=== PATIENT | female | born 1990 | race Caucasian/White ===

== ENCOUNTER 2018-01-27 21:14 | Emergency (ER) | payer MEDICAID, OTHER ==
[2018-01-28] MEDS: SOD CHLORIDE 0.9% 1,000 ML IV (01:10)
[2018-01-28] MEDS: METOCLOPRAMIDE 10 MG INJ IV (01:10)
[2018-01-28] MEDS: DIPHENHYDRAMINE 50 MG INJ IV (01:11)
[2018-01-28 01:14] LABS: ADD UMIC YES; UR ASCORBIC ACID 40 mg/dL (NEGATIVE); UR BILIRUBIN (Dip) NEGATIVE (NEGATIVE); UR BLOOD (Dip) NEGATIVE (NEGATIVE); UR CLARITY SLIGHTLY CLOUDY (CLEAR); UR COLOR AMBER (YELLOW); UR GLUCOSE (Dip) 1+ mg/dL (NEGATIVE); UR KETONES (Dip) 2+ mg/dL (NEGATIVE); UR LEUKOCYTE ESTERASE (Dip) TRACE Leu/ul (NEGATIVE); UR MUCUS MODERATE /HPF (NONE SEEN); UR NITRITE (Dip) NEGATIVE (NEGATIVE); UR RBC 5 /HPF (0-5); UR SQUAMOUS EPITHELIAL CELL FEW /HPF (FEW); UR TOTAL PROTEIN (Dip) 1+ mg/dl (NEGATIVE); UR UROBILINOGEN (Dip) NEGATIVE (NEGATIVE); UR WBC 5 /HPF (0-5)
[2018-01-28 01:33] LABS: ADD MAN DIFF? NO
[2018-01-28 01:34] LABS: WHITE BLOOD COUNT 9.2 10^3/ul (4.8-10.8)
[2018-01-28 01:34] LABS: BASOPHIL # 0.1 10^3/ul (0.0-0.1); EOSINOPHILS # 0.1 10^3/ul (0.0-0.5); EOSINOPHILS % 0.9 % (0.0-7.0); HEMATOCRIT 43.4 % (37.0-47.0); HEMOGLOBIN 15.3 g/dl (12.0-16.0); LYMPHOCYTES # 2.3 10^3/ul (0.8-2.9); LYMPHOCYTES % 24.7 % (15.0-51.0); MEAN CORPUSCULAR HEMOGLOBIN 28.7 pg (29.0-33.0); MEAN CORPUSCULAR HGB CONC 35.3 g/dl (32.0-37.0); MEAN CORPUSCULAR VOLUME 81.4 fl (82.0-101.0); MEAN PLATELET VOLUME 9.5 fl (7.4-10.4); MONOCYTE # 0.8 10^3/ul (0.3-0.9); MONOCYTES % 8.3 % (0.0-11.0); NEUTROPHILS % 64.9 % (39.0-77.0); PLATELET COUNT 309 10^3/UL (140-415); RED BLOOD COUNT 5.33 10^6/ul (4.20-5.40); RED CELL DISTRIBUTION WIDTH 13.2 % (11.5-14.5)
[2018-01-28 01:53] LABS: LIPASE 205 U/L (23-300)
[2018-01-28 01:55] LABS: ALANINE AMINOTRANSFERASE 39 IU/L (13-69); ALBUMIN 4.8 g/dl (3.3-4.9); ALBUMIN/GLOBULIN RATIO 1.29; ALKALINE PHOSPHATASE 55 IU/L (42-121); ANION GAP 19 (8-16); ASPARTATE AMINO TRANSFERASE 29 IU/L (15-46); BILIRUBIN,INDIRECT 0.3 mg/dl (0-1.1); BILIRUBIN,TOTAL 0.3 mg/dl (0.2-1.3); BLOOD UREA NITROGEN 8 mg/dl (7-20); CALCIUM 9.6 mg/dl (8.4-10.2); CARBON DIOXIDE 21 mmol/L (21-31); CHLORIDE 104 mmol/L (97-110); CREATININE 0.49 mg/dl (0.44-1.00); GLUCOSE 83 mg/dl (70-220); POTASSIUM 4.1 mmol/L (3.5-5.1); SODIUM 140 mmol/L (135-144); TOTAL PROTEIN 8.5 g/dl (6.1-8.1)
== END 2018-01-28 05:10 | disposition home or self-care (01) ==
LOC: FTE 21:14
DX: O26.891 Other specified pregnancy related conditions, first trimester (principal); R10.13 Epigastric pain; Z3A.08 8 weeks gestation of pregnancy
CPT/HCPCS: 36415; 76705; 76801; 80053; 81001; 83690; 84702; 85025; 86900; 86901; 96374; 96375; 99285-25

== ENCOUNTER 2018-01-31 17:44 | Emergency (ER) | payer MEDICAID ==
[2018-01-31] MEDS: LIDOCAINE/MYLANTA 40 ML BTL PO (19:27)
[2018-01-31] MEDS: FAMOTIDINE 20 MG INJ IV (19:27)
[2018-01-31] MEDS: METOCLOPRAMIDE 10 MG INJ IV (19:27)
[2018-01-31] MEDS: SOD CHLORIDE 0.9% 1,000 ML IV (19:27)
[2018-01-31 19:36] LABS: URINE BLOOD (Dip) POC 2+ (NEGATIVE); URINE GLUCOSE (Dip) POC Negative (NEGATIVE); URINE KETONES (Dip) POC 4+ (NEGATIVE); URINE LEUKOCYTE EST (Dip) POC Negative (NEGATIVE); URINE NITRITE (Dip) POC Negative (NEGATIVE); URINE TOTAL PROTEIN POC 2+ (NEGATIVE)
[2018-01-31 19:36] LABS: URINE PH (Dip) POC 5.5 (5.0-8.5)
[2018-01-31 19:46] LABS: ADD MAN DIFF? NO
[2018-01-31 19:47] LABS: BASOPHIL # 0.1 10^3/ul (0.0-0.1); BASOPHILS % 1.1 % (0.0-2.0); EOSINOPHILS # 0.1 10^3/ul (0.0-0.5); EOSINOPHILS % 0.6 % (0.0-7.0); HEMATOCRIT 47.3 % (37.0-47.0); LYMPHOCYTES # 1.6 10^3/ul (0.8-2.9); LYMPHOCYTES % 19.9 % (15.0-51.0); MEAN CORPUSCULAR HEMOGLOBIN 29.4 pg (29.0-33.0); MEAN CORPUSCULAR HGB CONC 35.9 g/dl (32.0-37.0); MEAN CORPUSCULAR VOLUME 81.7 fl (82.0-101.0); MEAN PLATELET VOLUME 9.3 fl (7.4-10.4); MONOCYTE # 0.6 10^3/ul (0.3-0.9); MONOCYTES % 6.8 % (0.0-11.0); NEUTROPHIL # 5.7 10^3/ul (1.6-7.5); NEUTROPHILS % 71.2 % (39.0-77.0); PLATELET COUNT 337 10^3/UL (140-415); RED BLOOD COUNT 5.79 10^6/ul (4.20-5.40); RED CELL DISTRIBUTION WIDTH 13.3 % (11.5-14.5)
[2018-01-31 20:07] LABS: ALANINE AMINOTRANSFERASE 46 IU/L (13-69); ALBUMIN 4.9 g/dl (3.3-4.9); ALBUMIN/GLOBULIN RATIO 1.11; ALKALINE PHOSPHATASE 58 IU/L (42-121); ANION GAP 25 (8-16); ASPARTATE AMINO TRANSFERASE 36 IU/L (15-46); BILIRUBIN,INDIRECT 0.5 mg/dl (0-1.1); BILIRUBIN,TOTAL 0.5 mg/dl (0.2-1.3); BLOOD UREA NITROGEN 6 mg/dl (7-20); CARBON DIOXIDE 22 mmol/L (21-31); CHLORIDE 100 mmol/L (97-110); CREATININE 0.54 mg/dl (0.44-1.00); GLUCOSE 78 mg/dl (70-220); LIPASE 322 U/L (23-300); POTASSIUM 4.2 mmol/L (3.5-5.1); SODIUM 143 mmol/L (135-144); TOTAL PROTEIN 9.3 g/dl (6.1-8.1)
== END 2018-01-31 21:45 | disposition home or self-care (01) ==
LOC: FTE 17:44
DX: O30.001 Twin pregnancy, unspecified number of placenta and unspecified number of amniotic sacs, first trimester (principal); O21.0 Mild hyperemesis gravidarum; R10.13 Epigastric pain; Z3A.09 9 weeks gestation of pregnancy
CPT/HCPCS: 36415; 80053; 81003; 81025; 83690; 85025; 96374; 96375; 99284-25

== ENCOUNTER 2018-02-09 17:06 | Emergency (ER) | payer MEDICAID ==
[2018-02-09] MEDS: METOCLOPRAMIDE 10 MG INJ IV (20:04)
[2018-02-09] MEDS: SOD CHLORIDE 0.9% 1,000 ML IV (20:04)
[2018-02-09] MEDS: ACETAMINOPHEN 500 MG TAB PO (20:04)
[2018-02-09 20:27] LABS: ADD MAN DIFF? NO
[2018-02-09 20:34] LABS: BASOPHIL # 0.1 10^3/ul (0.0-0.1); EOSINOPHILS # 0.1 10^3/ul (0.0-0.5); EOSINOPHILS % 1.7 % (0.0-7.0); HEMATOCRIT 44.6 % (37.0-47.0); HEMOGLOBIN 15.8 g/dl (12.0-16.0); LYMPHOCYTES # 1.8 10^3/ul (0.8-2.9); MEAN CORPUSCULAR HEMOGLOBIN 29.1 pg (29.0-33.0); MEAN CORPUSCULAR HGB CONC 35.4 g/dl (32.0-37.0); MEAN CORPUSCULAR VOLUME 82.1 fl (82.0-101.0); MEAN PLATELET VOLUME 9.6 fl (7.4-10.4); MONOCYTE # 0.7 10^3/ul (0.3-0.9); MONOCYTES % 8.7 % (0.0-11.0); NEUTROPHIL # 4.9 10^3/ul (1.6-7.5); NEUTROPHILS % 64.2 % (39.0-77.0); PLATELET COUNT 349 10^3/UL (140-415); RED BLOOD COUNT 5.43 10^6/ul (4.20-5.40); RED CELL DISTRIBUTION WIDTH 13.8 % (11.5-14.5)
[2018-02-09 20:34] LABS: WHITE BLOOD COUNT 7.7 10^3/ul (4.8-10.8)
[2018-02-09 20:43] LABS: ADD UMIC YES; UR ASCORBIC ACID 40 mg/dL (NEGATIVE); UR BACTERIA FEW /HPF (NONE SEEN); UR BILIRUBIN (Dip) NEGATIVE (NEGATIVE); UR BLOOD (Dip) NEGATIVE (NEGATIVE); UR CLARITY SLIGHTLY CLOUDY (CLEAR); UR COLOR YELLOW (YELLOW); UR GLUCOSE (Dip) NEGATIVE (NEGATIVE); UR KETONES (Dip) 2+ mg/dL (NEGATIVE); UR LEUKOCYTE ESTERASE (Dip) 2+ Leu/ul (NEGATIVE); UR MUCUS MODERATE /HPF (NONE SEEN); UR NITRITE (Dip) NEGATIVE (NEGATIVE); UR RBC 3 /HPF (0-5); UR SPECIFIC GRAVITY (Dip) 1.018 (1.003-1.030); UR SQUAMOUS EPITHELIAL CELL MODERATE /HPF (FEW); UR TOTAL PROTEIN (Dip) NEGATIVE (NEGATIVE); UR UROBILINOGEN (Dip) NEGATIVE (NEGATIVE); UR WBC 11 /HPF (0-5)
[2018-02-09 20:54] LABS: ALANINE AMINOTRANSFERASE 40 IU/L (13-69); ALBUMIN 4.6 g/dl (3.3-4.9); ALBUMIN/GLOBULIN RATIO 1.04; ALKALINE PHOSPHATASE 63 IU/L (42-121); ANION GAP 21 (8-16); ASPARTATE AMINO TRANSFERASE 33 IU/L (15-46); BILIRUBIN,INDIRECT 0.4 mg/dl (0-1.1); BILIRUBIN,TOTAL 0.4 mg/dl (0.2-1.3); BLOOD UREA NITROGEN 5 mg/dl (7-20); CALCIUM 9.9 mg/dl (8.4-10.2); CARBON DIOXIDE 22 mmol/L (21-31); CHLORIDE 102 mmol/L (97-110); CREATININE 0.54 mg/dl (0.44-1.00); GLUCOSE 86 mg/dl (70-220); POTASSIUM 4.2 mmol/L (3.5-5.1); SODIUM 141 mmol/L (135-144)
[2018-02-09 21:25] LABS: LIPASE 194 U/L (23-300)
== END 2018-02-09 22:15 | disposition home or self-care (01) ==
LOC: FTE 17:06
DX: O30.009 Twin pregnancy, unspecified number of placenta and unspecified number of amniotic sacs, unspecified trimester (principal); O23.41 Unspecified infection of urinary tract in pregnancy, first trimester; R10.2 Pelvic and perineal pain
CPT/HCPCS: 36415; 76801; 80053; 81001; 83690; 84702; 85025; 86900; 86901; 87086; 96374; 99285-25

== ENCOUNTER 2018-02-17 09:38 | Emergency (ER) | payer MEDICAID ==
[2018-02-17] MEDS: SOD CHLORIDE 0.9% 1,000 ML IV (10:11)
[2018-02-17] MEDS: METOCLOPRAMIDE 10 MG INJ IV (10:15)
[2018-02-17] MEDS: FAMOTIDINE 20 MG INJ IV (10:15)
[2018-02-17 10:31] LABS: ADD MAN DIFF? NO
[2018-02-17 10:32] LABS: BASOPHIL # 0.1 10^3/ul (0.0-0.1); BASOPHILS % 0.8 % (0.0-2.0); EOSINOPHILS # 0.1 10^3/ul (0.0-0.5); EOSINOPHILS % 1.2 % (0.0-7.0); HEMATOCRIT 44.4 % (37.0-47.0); HEMOGLOBIN 15.8 g/dl (12.0-16.0); LYMPHOCYTES # 1.7 10^3/ul (0.8-2.9); LYMPHOCYTES % 20.6 % (15.0-51.0); MEAN CORPUSCULAR HEMOGLOBIN 29.4 pg (29.0-33.0); MEAN CORPUSCULAR HGB CONC 35.6 g/dl (32.0-37.0); MEAN CORPUSCULAR VOLUME 82.5 fl (82.0-101.0); MEAN PLATELET VOLUME 9.5 fl (7.4-10.4); MONOCYTE # 0.5 10^3/ul (0.3-0.9); MONOCYTES % 6.4 % (0.0-11.0); NEUTROPHIL # 5.9 10^3/ul (1.6-7.5); NEUTROPHILS % 70.8 % (39.0-77.0); PLATELET COUNT 358 10^3/UL (140-415); RED BLOOD COUNT 5.38 10^6/ul (4.20-5.40)
[2018-02-17 10:32] LABS: WHITE BLOOD COUNT 8.3 10^3/ul (4.8-10.8)
[2018-02-17 10:40] LABS: ADD UMIC YES; UR AMORPHOUS CRYSTAL FEW /HPF (NONE SEEN); UR ASCORBIC ACID NEGATIVE (NEGATIVE); UR BACTERIA FEW /HPF (NONE SEEN); UR BILIRUBIN (Dip) NEGATIVE (NEGATIVE); UR BLOOD (Dip) NEGATIVE (NEGATIVE); UR CLARITY CLOUDY (CLEAR); UR COLOR YELLOW (YELLOW); UR GLUCOSE (Dip) NEGATIVE (NEGATIVE); UR KETONES (Dip) TRACE mg/dL (NEGATIVE); UR LEUKOCYTE ESTERASE (Dip) 1+ Leu/ul (NEGATIVE); UR MUCUS FEW /HPF (NONE SEEN); UR NITRITE (Dip) NEGATIVE (NEGATIVE); UR RBC 2 /HPF (0-5); UR SPECIFIC GRAVITY (Dip) 1.017 (1.003-1.030); UR SQUAMOUS EPITHELIAL CELL MODERATE /HPF (FEW); UR TOTAL PROTEIN (Dip) NEGATIVE (NEGATIVE); UR UROBILINOGEN (Dip) NEGATIVE (NEGATIVE); UR WBC 7 /HPF (0-5)
[2018-02-17 10:50] LABS: ALANINE AMINOTRANSFERASE 50 IU/L (13-69); ALBUMIN 4.7 g/dl (3.3-4.9); ALBUMIN/GLOBULIN RATIO 1.11; ALKALINE PHOSPHATASE 61 IU/L (42-121); ANION GAP 22 (8-16); ASPARTATE AMINO TRANSFERASE 29 IU/L (15-46); BILIRUBIN,INDIRECT 0.5 mg/dl (0-1.1); BILIRUBIN,TOTAL 0.5 mg/dl (0.2-1.3); BLOOD UREA NITROGEN 4 mg/dl (7-20); CALCIUM 9.9 mg/dl (8.4-10.2); CARBON DIOXIDE 19 mmol/L (21-31); CHLORIDE 108 mmol/L (97-110); CREATININE 0.55 mg/dl (0.44-1.00); GLUCOSE 96 mg/dl (70-220); LIPASE 238 U/L (23-300); POTASSIUM 4.4 mmol/L (3.5-5.1); SODIUM 145 mmol/L (135-144); TOTAL PROTEIN 8.9 g/dl (6.1-8.1)
[2018-02-17] MEDS: CEFTRIAXONE 1 GM/50 ML (PMX) 50 ML IVPB (12:43)
== END 2018-02-17 13:01 | disposition home or self-care (01) ==
LOC: FTE 09:38
DX: O23.41 Unspecified infection of urinary tract in pregnancy, first trimester (principal); O30.001 Twin pregnancy, unspecified number of placenta and unspecified number of amniotic sacs, first trimester; O99.89 Other specified diseases and conditions complicating pregnancy, childbirth and the puerperium; R51 Headache; R10.13 Epigastric pain; R10.2 Pelvic and perineal pain; Z3A.11 11 weeks gestation of pregnancy
CPT/HCPCS: 36415; 76801; 80053; 81001; 83690; 84702; 85025; 87086; 96374; 96375; 99285-25

== ENCOUNTER 2018-03-02 17:05 | Emergency (ER) | payer MEDICAID ==
[2018-03-02] MEDS ORDERED: PANTOPRAZOLE 40 MG INJ IV (20:30)
[2018-03-02] MEDS: ACETAMINOPHEN 325 MG TAB PO (20:37)
[2018-03-02] MEDS: SOD CHLORIDE 0.9% 1,000 ML IV (20:37)
[2018-03-02] MEDS: FAMOTIDINE 20 MG INJ IV (20:37)
[2018-03-02] MEDS: ONDANSETRON 4 MG INJ IV (20:37)
[2018-03-02 20:40] LABS: ADD MAN DIFF? NO
[2018-03-02 20:41] LABS: BASOPHIL # 0.1 10^3/ul (0.0-0.1); BASOPHILS % 0.8 % (0.0-2.0); EOSINOPHILS # 0.1 10^3/ul (0.0-0.5); EOSINOPHILS % 1.1 % (0.0-7.0); HEMATOCRIT 37.3 % (37.0-47.0); LYMPHOCYTES # 1.9 10^3/ul (0.8-2.9); LYMPHOCYTES % 23.8 % (15.0-51.0); MEAN CORPUSCULAR HEMOGLOBIN 29.6 pg (29.0-33.0); MEAN CORPUSCULAR HGB CONC 34.9 g/dl (32.0-37.0); MEAN PLATELET VOLUME 9.4 fl (7.4-10.4); MONOCYTE # 0.7 10^3/ul (0.3-0.9); MONOCYTES % 8.3 % (0.0-11.0); NEUTROPHIL # 5.2 10^3/ul (1.6-7.5); NEUTROPHILS % 65.7 % (39.0-77.0); PLATELET COUNT 271 10^3/UL (140-415); RED BLOOD COUNT 4.39 10^6/ul (4.20-5.40); RED CELL DISTRIBUTION WIDTH 13.9 % (11.5-14.5)
[2018-03-02 20:50] LABS: ADD UMIC YES; UR ASCORBIC ACID 20 mg/dL (NEGATIVE); UR BILIRUBIN (Dip) NEGATIVE (NEGATIVE); UR BLOOD (Dip) NEGATIVE (NEGATIVE); UR CLARITY CLOUDY (CLEAR); UR COLOR YELLOW (YELLOW); UR GLUCOSE (Dip) NEGATIVE (NEGATIVE); UR KETONES (Dip) NEGATIVE (NEGATIVE); UR LEUKOCYTE ESTERASE (Dip) 2+ Leu/ul (NEGATIVE); UR MUCUS MODERATE /HPF (NONE SEEN); UR NITRITE (Dip) NEGATIVE (NEGATIVE); UR RBC 3 /HPF (0-5); UR SPECIFIC GRAVITY (Dip) 1.023 (1.003-1.030); UR SQUAMOUS EPITHELIAL CELL MANY /HPF (FEW); UR TOTAL PROTEIN (Dip) 1+ mg/dl (NEGATIVE); UR UROBILINOGEN (Dip) NEGATIVE (NEGATIVE); UR WBC 14 /HPF (0-5)
[2018-03-02 21:02] LABS: ALANINE AMINOTRANSFERASE 32 IU/L (13-69); ALBUMIN 3.5 g/dl (3.3-4.9); ALKALINE PHOSPHATASE 53 IU/L (42-121); ANION GAP 15 (8-16); ASPARTATE AMINO TRANSFERASE 23 IU/L (15-46); BILIRUBIN,INDIRECT 0.3 mg/dl (0-1.1); BILIRUBIN,TOTAL 0.3 mg/dl (0.2-1.3); BLOOD UREA NITROGEN 6 mg/dl (7-20); CARBON DIOXIDE 19 mmol/L (21-31); CHLORIDE 108 mmol/L (97-110); CREATININE 0.44 mg/dl (0.44-1.00); GLUCOSE 75 mg/dl (70-220); LIPASE 175 U/L (23-300); POTASSIUM 3.2 mmol/L (3.5-5.1); SODIUM 139 mmol/L (135-144)
== END 2018-03-02 22:27 | disposition home or self-care (01) ==
LOC: FTE 17:05
DX: O21.0 Mild hyperemesis gravidarum (principal); O23.41 Unspecified infection of urinary tract in pregnancy, first trimester; Z3A.13 13 weeks gestation of pregnancy
CPT/HCPCS: 80053; 81001; 81025; 83690; 85025; 96374; 96375; 99284-25

== ENCOUNTER 2018-03-30 22:21 | Emergency (ER) | payer MEDICAID ==
[2018-03-30 23:40] LABS: ADD MAN DIFF? NO
[2018-03-30] MEDS: SOD CHLORIDE 0.9% 1,000 ML IV (23:46)
[2018-03-30] MEDS: ACETAMINOPHEN 325 MG TAB PO (23:46)
[2018-03-30 23:50] LABS: WHITE BLOOD COUNT 9.8 10^3/ul (4.8-10.8)
[2018-03-30 23:50] LABS: BASOPHIL # 0.1 10^3/ul (0.0-0.1); BASOPHILS % 0.7 % (0.0-2.0); EOSINOPHILS # 0.2 10^3/ul (0.0-0.5); EOSINOPHILS % 1.7 % (0.0-7.0); HEMATOCRIT 37.8 % (37.0-47.0); HEMOGLOBIN 13.1 g/dl (12.0-16.0); LYMPHOCYTES # 2.3 10^3/ul (0.8-2.9); LYMPHOCYTES % 23.3 % (15.0-51.0); MEAN CORPUSCULAR HEMOGLOBIN 30.9 pg (29.0-33.0); MEAN CORPUSCULAR HGB CONC 34.7 g/dl (32.0-37.0); MEAN CORPUSCULAR VOLUME 89.2 fl (82.0-101.0); MEAN PLATELET VOLUME 9.5 fl (7.4-10.4); MONOCYTE # 0.8 10^3/ul (0.3-0.9); MONOCYTES % 8.5 % (0.0-11.0); NEUTROPHIL # 6.4 10^3/ul (1.6-7.5); NEUTROPHILS % 65.2 % (39.0-77.0); PLATELET COUNT 269 10^3/UL (140-415); RED BLOOD COUNT 4.24 10^6/ul (4.20-5.40); RED CELL DISTRIBUTION WIDTH 14.7 % (11.5-14.5)
[2018-03-30 23:56] LABS: ADD UMIC NO; UR ASCORBIC ACID 20 mg/dL (NEGATIVE); UR BILIRUBIN (Dip) NEGATIVE (NEGATIVE); UR BLOOD (Dip) NEGATIVE (NEGATIVE); UR CLARITY CLEAR (CLEAR); UR COLOR YELLOW (YELLOW); UR GLUCOSE (Dip) NEGATIVE (NEGATIVE); UR KETONES (Dip) NEGATIVE (NEGATIVE); UR LEUKOCYTE ESTERASE (Dip) NEGATIVE Leu/ul (NEGATIVE); UR NITRITE (Dip) NEGATIVE (NEGATIVE); UR SPECIFIC GRAVITY (Dip) 1.009 (1.003-1.030); UR TOTAL PROTEIN (Dip) NEGATIVE (NEGATIVE); UR UROBILINOGEN (Dip) NEGATIVE (NEGATIVE)
[2018-03-30 23:59] LABS: INR 0.92; PROTIME 12.4 Sec (11.9-14.9)
[2018-03-31] LABS: PARTIAL THROMBOPLASTIN TIME 27.1 Sec (25.0-35.0)
[2018-03-31 00:06] LABS: ALANINE AMINOTRANSFERASE 28 IU/L (13-69); ALBUMIN 3.6 g/dl (3.3-4.9); ALBUMIN/GLOBULIN RATIO 1.09; ALKALINE PHOSPHATASE 57 IU/L (42-121); ANION GAP 11 (8-16); ASPARTATE AMINO TRANSFERASE 17 IU/L (15-46); BILIRUBIN,INDIRECT 0.2 mg/dl (0-1.1); BILIRUBIN,TOTAL 0.2 mg/dl (0.2-1.3); BLOOD UREA NITROGEN 4 mg/dl (7-20); CARBON DIOXIDE 26 mmol/L (21-31); CHLORIDE 107 mmol/L (97-110); CREATININE 0.43 mg/dl (0.44-1.00); GLUCOSE 87 mg/dl (70-220); POTASSIUM 3.8 mmol/L (3.5-5.1); SODIUM 140 mmol/L (135-144); TOTAL PROTEIN 6.9 g/dl (6.1-8.1)
== END 2018-03-31 02:12 | disposition home or self-care (01) ==
LOC: FTE 03-31 02:12
DX: O26.892 Other specified pregnancy related conditions, second trimester (principal); R10.2 Pelvic and perineal pain; Z3A.16 16 weeks gestation of pregnancy
CPT/HCPCS: 36415; 76805; 80053; 81003; 84702; 85025; 85610; 85730; 86900; 86901; 96360; 99285-25

== ENCOUNTER 2018-04-21 09:57 | Emergency (ER) | payer MEDICAID ==
[2018-04-21] MEDS: ACETAMINOPHEN 325 MG TAB PO (10:42)
[2018-04-21 11:07] LABS: ADD UMIC YES; UR ASCORBIC ACID NEGATIVE (NEGATIVE); UR BACTERIA FEW /HPF (NONE SEEN); UR BILIRUBIN (Dip) NEGATIVE (NEGATIVE); UR BLOOD (Dip) NEGATIVE (NEGATIVE); UR CLARITY SLIGHTLY CLOUDY (CLEAR); UR COLOR YELLOW (YELLOW); UR GLUCOSE (Dip) NEGATIVE (NEGATIVE); UR KETONES (Dip) NEGATIVE (NEGATIVE); UR LEUKOCYTE ESTERASE (Dip) 1+ Leu/ul (NEGATIVE); UR MUCUS FEW /HPF (NONE SEEN); UR NITRITE (Dip) NEGATIVE (NEGATIVE); UR RBC 1 /HPF (0-5); UR SQUAMOUS EPITHELIAL CELL FEW /HPF (FEW); UR TOTAL PROTEIN (Dip) NEGATIVE (NEGATIVE); UR UROBILINOGEN (Dip) NEGATIVE (NEGATIVE); UR WBC 8 /HPF (0-5)
[2018-04-21] MEDS: CEPHALEXIN 500 MG CAP PO (11:37)
== END 2018-04-21 12:12 | disposition home or self-care (01) ==
LOC: FTE 09:57
DX: O26.892 Other specified pregnancy related conditions, second trimester (principal); R10.2 Pelvic and perineal pain; Z3A.20 20 weeks gestation of pregnancy
CPT/HCPCS: 76805; 81001; 99284-25

== ENCOUNTER 2018-04-21 12:18 | Outpatient (CLI) | payer MEDICAID ==
[2018-04-21] MEDS: LACTATED RINGER'S 1,000 ML IV (14:26)
[2018-04-21] MEDS: TERBUTALINE 1 MG/ML INJ SC (15:04)
== END 2018-04-21 16:35 | disposition home or self-care (01) ==
LOC: OBT 12:18 → L-D 12:18 → OBT 16:35
DX: O26.892 Other specified pregnancy related conditions, second trimester (principal); R10.9 Unspecified abdominal pain; O30.002 Twin pregnancy, unspecified number of placenta and unspecified number of amniotic sacs, second trimester; Z3A.20 20 weeks gestation of pregnancy
CPT/HCPCS: 96360; 96361; 96372

== ENCOUNTER 2018-05-26 08:48 | Outpatient (CLI) | payer MEDICAID ==
[2018-05-26] MEDS: LACTATED RINGER'S 1,000 ML IV (09:07)
== END 2018-05-26 10:40 | disposition home or self-care (01) ==
LOC: OBT 08:48 → L-D 08:48 → OBT 10:40
DX: O26.893 Other specified pregnancy related conditions, third trimester (principal); M79.1 Myalgia; R07.9 Chest pain, unspecified; R06.02 Shortness of breath; Z3A.24 24 weeks gestation of pregnancy
CPT/HCPCS: 96360

== ENCOUNTER 2018-05-26 10:30 | Emergency (ER) | payer MEDICAID ==
[2018-05-26] MEDS: SOD CHLORIDE 0.9% 1,000 ML IV (11:39)
[2018-05-26 11:54] LABS: ADD MAN DIFF? NO
[2018-05-26 11:57] LABS: BASOPHIL # 0.1 10^3/ul (0.0-0.1); BASOPHILS % 0.8 % (0.0-2.0); EOSINOPHILS # 0.1 10^3/ul (0.0-0.5); EOSINOPHILS % 1.4 % (0.0-7.0); HEMOGLOBIN 12.7 g/dl (12.0-16.0); LYMPHOCYTES # 1.7 10^3/ul (0.8-2.9); LYMPHOCYTES % 17.4 % (15.0-51.0); MEAN CORPUSCULAR HEMOGLOBIN 31.1 pg (29.0-33.0); MEAN CORPUSCULAR HGB CONC 34.3 g/dl (32.0-37.0); MEAN CORPUSCULAR VOLUME 90.5 fl (82.0-101.0); MEAN PLATELET VOLUME 9.8 fl (7.4-10.4); MONOCYTE # 0.8 10^3/ul (0.3-0.9); MONOCYTES % 8.5 % (0.0-11.0); NEUTROPHIL # 6.8 10^3/ul (1.6-7.5); NEUTROPHILS % 71.4 % (39.0-77.0); PLATELET COUNT 245 10^3/UL (140-415); RED BLOOD COUNT 4.09 10^6/ul (4.20-5.40)
[2018-05-26 11:57] LABS: WHITE BLOOD COUNT 9.5 10^3/ul (4.8-10.8)
[2018-05-26 11:58] LABS: ADD UMIC YES; UR ASCORBIC ACID NEGATIVE (NEGATIVE); UR BACTERIA FEW /HPF (NONE SEEN); UR BILIRUBIN (Dip) NEGATIVE (NEGATIVE); UR BLOOD (Dip) NEGATIVE (NEGATIVE); UR CLARITY CLEAR (CLEAR); UR COLOR STRAW (YELLOW); UR GLUCOSE (Dip) NEGATIVE (NEGATIVE); UR KETONES (Dip) NEGATIVE (NEGATIVE); UR LEUKOCYTE ESTERASE (Dip) 3+ Leu/ul (NEGATIVE); UR NITRITE (Dip) NEGATIVE (NEGATIVE); UR RBC 1 /HPF (0-5); UR SPECIFIC GRAVITY (Dip) 1.004 (1.003-1.030); UR SQUAMOUS EPITHELIAL CELL FEW /HPF (FEW); UR TOTAL PROTEIN (Dip) NEGATIVE (NEGATIVE); UR UROBILINOGEN (Dip) NEGATIVE (NEGATIVE); UR WBC 9 /HPF (0-5)
[2018-05-26 12:16] LABS: ANION GAP 10 (8-16); BLOOD UREA NITROGEN 6 mg/dl (7-20); CALCIUM 8.8 mg/dl (8.4-10.2); CARBON DIOXIDE 23 mmol/L (21-31); CHLORIDE 107 mmol/L (97-110); CREATININE 0.48 mg/dl (0.44-1.00); GLUCOSE 78 mg/dl (70-220); POTASSIUM 4.4 mmol/L (3.5-5.1); SODIUM 136 mmol/L (135-144)
[2018-05-26] MEDS: CEFTRIAXONE 1 GM/50 ML (PMX) 50 ML IVPB (12:42)
== END 2018-05-26 13:05 | disposition home or self-care (01) ==
LOC: FTE 10:30
DX: O23.42 Unspecified infection of urinary tract in pregnancy, second trimester (principal); R00.2 Palpitations; Z3A.23 23 weeks gestation of pregnancy
CPT/HCPCS: 36415; 80048; 81001; 85025; 93005; 96361; 96365; 99284-25

== ENCOUNTER 2018-06-25 04:22 | Inpatient (IN) | payer MEDICAID ==
[2018-06-25 05:36] LABS: ADD UMIC YES; UR ASCORBIC ACID NEGATIVE (NEGATIVE); UR BACTERIA FEW /HPF (NONE SEEN); UR BILIRUBIN (Dip) NEGATIVE (NEGATIVE); UR BLOOD (Dip) NEGATIVE (NEGATIVE); UR CLARITY CLEAR (CLEAR); UR COLOR STRAW (YELLOW); UR GLUCOSE (Dip) NEGATIVE (NEGATIVE); UR KETONES (Dip) NEGATIVE (NEGATIVE); UR LEUKOCYTE ESTERASE (Dip) TRACE Leu/ul (NEGATIVE); UR NITRITE (Dip) NEGATIVE (NEGATIVE); UR RBC 0 /HPF (0-5); UR SPECIFIC GRAVITY (Dip) 1.006 (1.003-1.030); UR SQUAMOUS EPITHELIAL CELL FEW /HPF (FEW); UR TOTAL PROTEIN (Dip) NEGATIVE (NEGATIVE); UR UROBILINOGEN (Dip) NEGATIVE (NEGATIVE); UR WBC 1 /HPF (0-5)
[2018-06-25] MEDS: LACTATED RINGER'S 1,000 ML IV ×4 (05:43→23:50)
[2018-06-25] MEDS ORDERED: NIFEdipine 10 MG CAP PO (07:30)
[2018-06-25] MEDS: LACTATED RINGER'S 1,000 ML IV* (07:33)
[2018-06-25] MEDS: MAGNESIUM SULFATE 4 GM/100 ML 100 ML IV (08:16)
[2018-06-25] MEDS: BETAMET NA PHOS/AC(6 MG/ML) 5ML INJ IM (08:20)
[2018-06-25] MEDS: MAGNESIUM SULFATE 20 GM/500 ML 500 ML IV ×2 (08:58→18:46)
[2018-06-25 10:01] LABS: ADD MAN DIFF? NO
[2018-06-25 10:04] LABS: WHITE BLOOD COUNT 8.8 10^3/ul (4.8-10.8)
[2018-06-25 10:04] LABS: BASOPHIL # 0.1 10^3/ul (0.0-0.1); BASOPHILS % 0.6 % (0.0-2.0); EOSINOPHILS # 0.1 10^3/ul (0.0-0.5); EOSINOPHILS % 0.9 % (0.0-7.0); HEMATOCRIT 34.1 % (37.0-47.0); HEMOGLOBIN 11.6 g/dl (12.0-16.0); LYMPHOCYTES # 1.3 10^3/ul (0.8-2.9); LYMPHOCYTES % 14.2 % (15.0-51.0); MEAN CORPUSCULAR VOLUME 88.1 fl (82.0-101.0); MEAN PLATELET VOLUME 9.9 fl (7.4-10.4); MONOCYTE # 0.5 10^3/ul (0.3-0.9); MONOCYTES % 6.1 % (0.0-11.0); NEUTROPHIL # 6.9 10^3/ul (1.6-7.5); NEUTROPHILS % 77.6 % (39.0-77.0); PLATELET COUNT 220 10^3/UL (140-415); RED BLOOD COUNT 3.87 10^6/ul (4.20-5.40); RED CELL DISTRIBUTION WIDTH 13.4 % (11.5-14.5)
[2018-06-25] MEDS: PRENATAL VITAMIN PO (14:00)
[2018-06-25] MEDS: FERROUS SULFATE (EC) 325 MG TAB PO (14:00)
[2018-06-25] MEDS: ACETAMINOPHEN 325 MG TAB PO ×3 (14:01→22:03)
[2018-06-25 18:09] LABS: MAGNESIUM 4.9 mg/dl (1.7-2.5)
[2018-06-26 01:38] LABS: MAGNESIUM 5.2 mg/dl (1.7-2.5)
[2018-06-26] MEDS: MAGNESIUM SULFATE 20 GM/500 ML 500 ML IV (04:26)
[2018-06-26 06:42] LABS: MAGNESIUM 5.4 mg/dl (1.7-2.5)
[2018-06-26] MEDS: LACTATED RINGER'S 1,000 ML IV ×3 (08:08→23:50)
[2018-06-26] MEDS: PRENATAL VITAMIN PO (08:18)
[2018-06-26] MEDS: FERROUS SULFATE (EC) 325 MG TAB PO (08:18)
[2018-06-26] MEDS: BETAMET NA PHOS/AC(6 MG/ML) 5ML INJ IM (08:19)
[2018-06-26 13:22] LABS: MAGNESIUM 5.2 mg/dl (1.7-2.5)
[2018-06-26] MEDS: NIFEdipine 10 MG CAP PO ×2 (15:14→19:31)
[2018-06-26] MEDS: ACETAMINOPHEN 325 MG TAB PO (20:43)
[2018-06-27] MEDS: NIFEdipine 10 MG CAP PO ×4 (01:07→18:19)
[2018-06-27] MEDS: ACETAMINOPHEN 325 MG TAB PO ×2 (01:07→13:53)
[2018-06-27] MEDS: AL HYDROX/MG HYDROX/SIMETH 30 ML CUP PO ×2 (02:12→22:11)
[2018-06-27] MEDS: LACTATED RINGER'S 1,000 ML IV ×3 (02:57→17:54)
[2018-06-27] MEDS: FERROUS SULFATE (EC) 325 MG TAB PO (09:00)
[2018-06-27] MEDS: PRENATAL VITAMIN PO (09:12)
[2018-06-28] MEDS: NIFEdipine 10 MG CAP PO ×5 (01:18→23:47)
[2018-06-28] MEDS: LACTATED RINGER'S 1,000 ML IV ×3 (01:23→17:11)
[2018-06-28] MEDS: ACETAMINOPHEN 325 MG TAB PO ×3 (02:06→18:11)
[2018-06-28] MEDS: FERROUS SULFATE (EC) 325 MG TAB PO (08:34)
[2018-06-28] MEDS: PRENATAL VITAMIN PO (08:34)
[2018-06-28] MEDS: AL HYDROX/MG HYDROX/SIMETH 30 ML CUP PO (19:57)
[2018-06-29] MEDS: LACTATED RINGER'S 1,000 ML IV ×2 (01:51→08:36)
[2018-06-29] MEDS: NIFEdipine 10 MG CAP PO ×3 (06:08→18:43)
[2018-06-29] MEDS: PRENATAL VITAMIN PO (08:37)
[2018-06-29] MEDS: FERROUS SULFATE (EC) 325 MG TAB PO (08:37)
[2018-06-29] MEDS: AL HYDROX/MG HYDROX/SIMETH 30 ML CUP PO (22:58)
[2018-06-30] MEDS: NIFEdipine 10 MG CAP PO ×5 (00:06→23:55)
[2018-06-30] MEDS: FERROUS SULFATE (EC) 325 MG TAB PO (08:36)
[2018-06-30] MEDS: PRENATAL VITAMIN PO (08:36)
[2018-06-30] MEDS: AL HYDROX/MG HYDROX/SIMETH 30 ML CUP PO (21:58)
[2018-07-01] MEDS: NIFEdipine 10 MG CAP PO ×3 (06:11→18:00)
[2018-07-01] MEDS: PRENATAL VITAMIN PO (08:55)
[2018-07-01] MEDS: FERROUS SULFATE (EC) 325 MG TAB PO (08:55)
[2018-07-01] MEDS: ACETAMINOPHEN 325 MG TAB PO (23:20)
[2018-07-02] MEDS: NIFEdipine 10 MG CAP PO ×5 (00:03→23:32)
[2018-07-02] MEDS: ACETAMINOPHEN 325 MG TAB PO (06:51)
[2018-07-02] MEDS: PRENATAL VITAMIN PO (08:55)
[2018-07-02] MEDS: FERROUS SULFATE (EC) 325 MG TAB PO (08:55)
[2018-07-02] MEDS: AL HYDROX/MG HYDROX/SIMETH 30 ML CUP PO ×3 (12:09→23:31)
[2018-07-03] MEDS: AL HYDROX/MG HYDROX/SIMETH 30 ML CUP PO ×3 (06:36→23:59)
[2018-07-03] MEDS: NIFEdipine 10 MG CAP PO ×4 (06:37→23:59)
[2018-07-03] MEDS: FERROUS SULFATE (EC) 325 MG TAB PO (08:51)
[2018-07-03] MEDS: PRENATAL VITAMIN PO (08:51)
[2018-07-04] MEDS: NIFEdipine 10 MG CAP PO ×3 (07:30→18:06)
[2018-07-04] MEDS: AL HYDROX/MG HYDROX/SIMETH 30 ML CUP PO ×2 (07:45→20:28)
[2018-07-04] MEDS: PRENATAL VITAMIN PO (09:05)
[2018-07-04] MEDS: FERROUS SULFATE (EC) 325 MG TAB PO (09:05)
[2018-07-05] MEDS: NIFEdipine 10 MG CAP PO ×4 (00:20→18:02)
[2018-07-05] MEDS: FERROUS SULFATE (EC) 325 MG TAB PO (10:29)
[2018-07-05] MEDS: PRENATAL VITAMIN PO (10:29)
[2018-07-05] MEDS: AL HYDROX/MG HYDROX/SIMETH 30 ML CUP PO (15:55)
[2018-07-05] MEDS: ACETAMINOPHEN 325 MG TAB PO ×2 (17:53→17:55)
[2018-07-06] MEDS: NIFEdipine 10 MG CAP PO ×3 (01:12→12:16)
[2018-07-06] MEDS: PRENATAL VITAMIN PO (09:38)
[2018-07-06] MEDS: FERROUS SULFATE (EC) 325 MG TAB PO (09:38)
[2018-07-06] MEDS: AL HYDROX/MG HYDROX/SIMETH 30 ML CUP PO (09:42)
== END 2018-07-06 14:45 | disposition home or self-care (01) | DRG 775 ==
LOC: OBT 04:22 → L-D 04:23 → OBT 07:49 → L-D 07:40
DX: O26.873 Cervical shortening, third trimester (principal); Z37.9 Outcome of delivery, unspecified; O60.03 Preterm labor without delivery, third trimester; O62.8 Other abnormalities of forces of labor; Z3A.29 29 weeks gestation of pregnancy
CPT/HCPCS: 76815; 76817; 76818; 81001; 83735; 85025; 86900; 86901

== ENCOUNTER 2018-07-19 18:07 | Inpatient (IN) | payer MEDICAID ==
[2018-07-19 19:13] LABS: ADD UMIC NO; UR ASCORBIC ACID NEGATIVE (NEGATIVE); UR BILIRUBIN (Dip) NEGATIVE (NEGATIVE); UR BLOOD (Dip) NEGATIVE (NEGATIVE); UR CLARITY CLEAR (CLEAR); UR COLOR STRAW (YELLOW); UR GLUCOSE (Dip) NEGATIVE (NEGATIVE); UR KETONES (Dip) NEGATIVE (NEGATIVE); UR LEUKOCYTE ESTERASE (Dip) NEGATIVE Leu/ul (NEGATIVE); UR NITRITE (Dip) NEGATIVE (NEGATIVE); UR SPECIFIC GRAVITY (Dip) 1.002 (1.003-1.030); UR TOTAL PROTEIN (Dip) NEGATIVE (NEGATIVE); UR UROBILINOGEN (Dip) NEGATIVE (NEGATIVE)
[2018-07-19] MEDS: NIFEdipine 10 MG CAP PO (20:04)
[2018-07-19] MEDS: AMPICILLIN 2 GM/NS (PMX) 100 ML IV (22:13)
[2018-07-19] MEDS: LACTATED RINGER'S 1,000 ML IV (22:13)
[2018-07-19] MEDS: BETAMET NA PHOS/AC(6 MG/ML) 5ML INJ IM (22:31)
[2018-07-19 23:25] LABS: ADD MAN DIFF? NO
[2018-07-19 23:29] LABS: WHITE BLOOD COUNT 8.2 10^3/ul (4.8-10.8)
[2018-07-19 23:29] LABS: BASOPHIL # 0.1 10^3/ul (0.0-0.1); BASOPHILS % 0.9 % (0.0-2.0); EOSINOPHILS # 0.2 10^3/ul (0.0-0.5); EOSINOPHILS % 2.3 % (0.0-7.0); HEMATOCRIT 37.8 % (37.0-47.0); HEMOGLOBIN 12.8 g/dl (12.0-16.0); LYMPHOCYTES # 1.9 10^3/ul (0.8-2.9); LYMPHOCYTES % 23.7 % (15.0-51.0); MEAN CORPUSCULAR HEMOGLOBIN 29.9 pg (29.0-33.0); MEAN CORPUSCULAR HGB CONC 33.9 g/dl (32.0-37.0); MEAN CORPUSCULAR VOLUME 88.3 fl (82.0-101.0); MEAN PLATELET VOLUME 9.6 fl (7.4-10.4); MONOCYTE # 0.7 10^3/ul (0.3-0.9); NEUTROPHIL # 5.2 10^3/ul (1.6-7.5); NEUTROPHILS % 63.6 % (39.0-77.0); PLATELET COUNT 227 10^3/UL (140-415); RED BLOOD COUNT 4.28 10^6/ul (4.20-5.40); RED CELL DISTRIBUTION WIDTH 13.4 % (11.5-14.5)
[2018-07-19 23:46] LABS: ALANINE AMINOTRANSFERASE 23 IU/L (13-69); ALBUMIN/GLOBULIN RATIO 0.83; ALKALINE PHOSPHATASE 221 IU/L (42-121); ANION GAP 13 (8-16); ASPARTATE AMINO TRANSFERASE 23 IU/L (15-46); BILIRUBIN,INDIRECT 0.3 mg/dl (0-1.1); BILIRUBIN,TOTAL 0.3 mg/dl (0.2-1.3); BLOOD UREA NITROGEN 4 mg/dl (7-20); CALCIUM 8.8 mg/dl (8.4-10.2); CARBON DIOXIDE 22 mmol/L (21-31); CHLORIDE 107 mmol/L (97-110); CREATININE 0.43 mg/dl (0.44-1.00); GLUCOSE 87 mg/dl (70-220); POTASSIUM 3.8 mmol/L (3.5-5.1); SODIUM 138 mmol/L (135-144); TOTAL PROTEIN 6.6 g/dl (6.1-8.1)
[2018-07-19 23:47] LABS: INR 0.93; PROTIME 12.5 Sec (11.9-14.9)
[2018-07-19 23:48] LABS: PARTIAL THROMBOPLASTIN TIME 26.3 Sec (25.0-35.0)
[2018-07-20] MEDS ORDERED: NIFEdipine 10 MG CAP PO
[2018-07-20] MEDS: AMPICILLIN 1 GM/NS (PMX) 50 ML IV ×6 (01:46→21:00)
[2018-07-20] MEDS: NIFEdipine 10 MG CAP PO ×3 (01:52→09:31)
[2018-07-20] MEDS: AL HYDROX/MG HYDROX/SIMETH 30 ML CUP PO ×3 (04:05→23:23)
[2018-07-20] MEDS: LACTATED RINGER'S 1,000 ML IV ×2 (04:05→16:50)
[2018-07-20] MEDS: PRENATAL VITAMIN PO (09:31)
[2018-07-20] MEDS: FERROUS SULFATE (EC) 325 MG TAB PO (09:31)
[2018-07-20] MEDS ORDERED: MAGNESIUM SULFATE 4 GM/100 ML 100 ML (11:23)
[2018-07-20] MEDS: MAGNESIUM SULFATE 4 GM/100 ML 100 ML IV (11:45)
[2018-07-20] MEDS: LACTATED RINGER'S 1,000 ML IV* (11:57)
[2018-07-20] MEDS: MAGNESIUM SULFATE 20 GM/500 ML 500 ML IV ×2 (12:19→21:49)
[2018-07-20] MEDS: ACETAMINOPHEN 325 MG TAB PO (16:48)
[2018-07-20 18:50] LABS: MAGNESIUM 4.4 mg/dl (1.7-2.5)
[2018-07-20 22:49] LABS: RAPID PLASMA REAGIN NONREACTIVE (NR)
[2018-07-20] MEDS: BETAMET NA PHOS/AC(6 MG/ML) 5ML INJ IM (22:55)
[2018-07-21 00:49] LABS: MAGNESIUM 4.9 mg/dl (1.7-2.5)
[2018-07-21] MEDS: AMPICILLIN 1 GM/NS (PMX) 50 ML IV ×8 (01:49→21:53)
[2018-07-21 07:37] LABS: MAGNESIUM 5.1 mg/dl (1.7-2.5)
[2018-07-21] MEDS: PRENATAL VITAMIN PO (09:08)
[2018-07-21] MEDS: FERROUS SULFATE (EC) 325 MG TAB PO (09:08)
[2018-07-21] MEDS: MAGNESIUM SULFATE 20 GM/500 ML 500 ML IV ×2 (09:13→19:45)
[2018-07-21] MEDS: LACTATED RINGER'S 1,000 ML IV (11:31)
[2018-07-21 12:46] LABS: MAGNESIUM 4.9 mg/dl (1.7-2.5)
[2018-07-21] MEDS: AL HYDROX/MG HYDROX/SIMETH 30 ML CUP PO ×2 (14:39→23:10)
[2018-07-21 18:37] LABS: MAGNESIUM 5.2 mg/dl (1.7-2.5)
[2018-07-22] MEDS: AMPICILLIN 1 GM/NS (PMX) 50 ML IV ×6 (01:30→21:31)
[2018-07-22 01:51] LABS: MAGNESIUM 5.3 mg/dl (1.7-2.5)
[2018-07-22] MEDS ORDERED: CALCIUM CARBONATE 500 MG CHEW TAB PO (02:00)
[2018-07-22] MEDS: LACTATED RINGER'S 1,000 ML IV (04:56)
[2018-07-22] MEDS: MAGNESIUM SULFATE 20 GM/500 ML 500 ML IV ×3 (04:57→23:12)
[2018-07-22 08:16] LABS: MAGNESIUM 5.3 mg/dl (1.7-2.5)
[2018-07-22] MEDS: PRENATAL VITAMIN PO (08:59)
[2018-07-22] MEDS: FERROUS SULFATE (EC) 325 MG TAB PO (09:00)
[2018-07-22 12:36] LABS: MAGNESIUM 5.2 mg/dl (1.7-2.5)
[2018-07-22] MEDS: AL HYDROX/MG HYDROX/SIMETH 30 ML CUP PO ×2 (13:51→22:33)
[2018-07-22 18:16] LABS: MAGNESIUM 4.7 mg/dl (1.7-2.5)
[2018-07-23] MEDS: AMPICILLIN 1 GM/NS (PMX) 50 ML IV ×3 (00:55→08:01)
[2018-07-23] MEDS: MAGNESIUM SULFATE 20 GM/500 ML 500 ML IV (02:26)
[2018-07-23] MEDS: LACTATED RINGER'S 1,000 ML IV (03:08)
[2018-07-23] MEDS: PRENATAL VITAMIN PO (09:14)
[2018-07-23] MEDS: FERROUS SULFATE (EC) 325 MG TAB PO (09:14)
[2018-07-23] MEDS: NIFEdipine 10 MG CAP PO ×3 (11:53→23:56)
[2018-07-23] MEDS: AL HYDROX/MG HYDROX/SIMETH 30 ML CUP PO (21:47)
[2018-07-24] MEDS: NIFEdipine 10 MG CAP PO ×3 (06:10→18:34)
[2018-07-24] MEDS: PRENATAL VITAMIN PO (08:31)
[2018-07-24] MEDS: FERROUS SULFATE (EC) 325 MG TAB PO (08:31)
[2018-07-24] MEDS: AL HYDROX/MG HYDROX/SIMETH 30 ML CUP PO (08:45)
[2018-07-24] MEDS: LACTATED RINGER'S 1,000 ML IV (21:56)
[2018-07-24 22:47] LABS: ADD MAN DIFF? NO
[2018-07-24 22:50] LABS: BASOPHIL # 0.1 10^3/ul (0.0-0.1); BASOPHILS % 0.5 % (0.0-2.0); EOSINOPHILS # 0.1 10^3/ul (0.0-0.5); EOSINOPHILS % 0.8 % (0.0-7.0); HEMATOCRIT 40.7 % (37.0-47.0); HEMOGLOBIN 13.8 g/dl (12.0-16.0); LYMPHOCYTES # 1.8 10^3/ul (0.8-2.9); LYMPHOCYTES % 18.2 % (15.0-51.0); MEAN CORPUSCULAR HGB CONC 33.9 g/dl (32.0-37.0); MEAN CORPUSCULAR VOLUME 88.5 fl (82.0-101.0); MEAN PLATELET VOLUME 9.7 fl (7.4-10.4); MONOCYTE # 0.8 10^3/ul (0.3-0.9); NEUTROPHIL # 7.1 10^3/ul (1.6-7.5); NEUTROPHILS % 71.5 % (39.0-77.0); PLATELET COUNT 270 10^3/UL (140-415); RED CELL DISTRIBUTION WIDTH 13.6 % (11.5-14.5)
[2018-07-24 23:09] LABS: PROTIME 12.2 Sec (11.9-14.9)
[2018-07-25] MEDS: NIFEdipine 10 MG CAP PO ×3 (01:09→12:45)
[2018-07-25] MEDS: LACTATED RINGER'S 1,000 ML IV ×4 (04:48→22:26)
[2018-07-25] MEDS: PRENATAL VITAMIN PO (08:57)
[2018-07-25] MEDS: FERROUS SULFATE (EC) 325 MG TAB PO (08:57)
[2018-07-25] MEDS ORDERED: OXYTOCIN 30 UNITS/LR 500 ML IV ×3 (14:30→21:00)
[2018-07-25] MEDS ORDERED: CEFAZOLIN 2 GM/50 ML (PMX) 50 ML IV (14:30)
[2018-07-25] MEDS ORDERED: METHYLERGONOVINE 0.2 MG INJ IM ×2 (14:30→21:00)
[2018-07-25] MEDS ORDERED: CARBOPROST 250 MCG INJ IM ×2 (14:30→21:00)
[2018-07-25] MEDS ORDERED: MISOPROSTOL 200 MCG TAB PR ×2 (14:30→21:00)
[2018-07-25 16:16] LABS: HEPATITIS B SURFACE ANTIGEN NEGATIVE (NEGATIVE)
[2018-07-25] MEDS ORDERED: morphine SULFATE/PF (10 MG/10 ML) INJ (16:32)
[2018-07-25] MEDS ORDERED: BUPIVACAINE 0.75%/DEXT (SPINAL) 2 ML INJ (16:32)
[2018-07-25] MEDS ORDERED: CITRIC ACID/SODIUM CITRATE 15 ML CUP (16:32)
[2018-07-25] MEDS ORDERED: METOCLOPRAMIDE 10 MG INJ (16:33)
[2018-07-25] MEDS ORDERED: FAMOTIDINE 20 MG INJ (16:33)
[2018-07-25] MEDS ORDERED: PHENYLephrine (100 MCG/ML) 5ML SYG (16:48)
[2018-07-25] MEDS ORDERED: ONDANSETRON 4 MG INJ (16:57)
[2018-07-25] MEDS ORDERED: MIDAZOLAM 1 MG/ML 2 ML INJ (16:59)
[2018-07-25] MEDS ORDERED: EPHEDrine SULFATE 50 MG/5 ML SYG (17:17)
[2018-07-25] MEDS ORDERED: NALOXONE (0.4 MG/ML) INJ IV (17:30)
[2018-07-25] MEDS ORDERED: PROCHLORPERAZINE 10 MG INJ IV (17:30)
[2018-07-25] MEDS ORDERED: FENTAnyl 50 MCG/ML VIAL IV ×3 (17:30)
[2018-07-25] MEDS ORDERED: ZOLPIDEM 5 MG TAB PO (17:30)
[2018-07-25] MEDS ORDERED: MEPERIDINE 25 MG INJ IV (17:30)
[2018-07-25] MEDS ORDERED: ONDANSETRON 4 MG INJ IV ×2 (17:30)
[2018-07-25] MEDS ORDERED: HYDROmorphONE 1 MG/5 ML IV SYRINGE IV ×3 (17:30)
[2018-07-25] MEDS ORDERED: DIPHENHYDRAMINE 50 MG INJ IV (17:30)
[2018-07-25] MEDS ORDERED: HYDROmorphONE 0.5 MG/0.5 ML SYG IV (17:30)
[2018-07-25] MEDS: OXYTOCIN 30 UNITS/LR 500 ML IV ×2 (18:19→21:23)
[2018-07-25] MEDS: CITRIC ACID/NA CITRATE 30 ML CUP PO (19:05)
[2018-07-25] MEDS: KETOROLAC 30 MG INJ IV (19:05)
[2018-07-25] MEDS: DIPHENHYDRAMINE 50 MG INJ IV (20:03)
[2018-07-25] MEDS ORDERED: LANOLIN 7 GM TUBE TOP (21:00)
[2018-07-25] MEDS ORDERED: OXYCODONE/ACETAMINOPHEN (5/325) TAB PO ×2 (21:00)
[2018-07-25] MEDS: CEFAZOLIN 1 GM/50 ML (PMX) 50 ML IVPB (21:23)
[2018-07-25] MEDS: SENNA/DOCUSATE NA (8.6MG/50MG) TAB PO (21:23)
[2018-07-25] MEDS: HYDROmorphONE 0.5 MG/0.5 ML SYG IV (23:53)
[2018-07-26] MEDS: OXYTOCIN 30 UNITS/LR 500 ML IV ×3 (02:30→19:02)
[2018-07-26] MEDS: KETOROLAC 30 MG INJ IV ×3 (04:53→16:20)
[2018-07-26 08:29] LABS: ADD MAN DIFF? NO
[2018-07-26 08:34] LABS: BASOPHILS % 0.4 % (0.0-2.0); EOSINOPHILS % 0.4 % (0.0-7.0); HEMATOCRIT 32.4 % (37.0-47.0); HEMOGLOBIN 10.9 g/dl (12.0-16.0); LYMPHOCYTES # 1.4 10^3/ul (0.8-2.9); LYMPHOCYTES % 12.8 % (15.0-51.0); MEAN CORPUSCULAR HEMOGLOBIN 29.6 pg (29.0-33.0); MEAN CORPUSCULAR HGB CONC 33.6 g/dl (32.0-37.0); MEAN PLATELET VOLUME 9.5 fl (7.4-10.4); MONOCYTES % 8.6 % (0.0-11.0); NEUTROPHIL # 8.6 10^3/ul (1.6-7.5); NEUTROPHILS % 77.1 % (39.0-77.0); PLATELET COUNT 192 10^3/UL (140-415); RED BLOOD COUNT 3.68 10^6/ul (4.20-5.40); RED CELL DISTRIBUTION WIDTH 13.6 % (11.5-14.5)
[2018-07-26 08:34] LABS: WHITE BLOOD COUNT 11.1 10^3/ul (4.8-10.8)
[2018-07-26] MEDS: SENNA/DOCUSATE NA (8.6MG/50MG) TAB PO ×2 (10:31→20:27)
[2018-07-26] MEDS: LACTATED RINGER'S 1,000 ML IV ×2 (10:33→19:02)
[2018-07-26] MEDS: IBUPROFEN 600 MG TAB PO (18:00)
[2018-07-26] MEDS: HYDROCODONE/APAP (5/325) TAB PO (20:27)
[2018-07-27] MEDS: LACTATED RINGER'S 1,000 ML IV (00:45)
[2018-07-27] MEDS: OXYTOCIN 30 UNITS/LR 500 ML IV ×2 (00:45→00:46)
[2018-07-27] MEDS: HYDROCODONE/APAP (5/325) TAB PO ×3 (03:55→21:50)
[2018-07-27] MEDS: IBUPROFEN 600 MG TAB PO ×4 (05:44→17:36)
[2018-07-27] MEDS: SENNA/DOCUSATE NA (8.6MG/50MG) TAB PO ×2 (09:11→20:51)
[2018-07-28] MEDS: IBUPROFEN 600 MG TAB PO ×3 (05:35→11:56)
[2018-07-28] MEDS: DIPHTH/TET/ACEL PERTUSS (ADULT) 0.5 ML VIAL IM* (08:22)
[2018-07-28] MEDS: SENNA/DOCUSATE NA (8.6MG/50MG) TAB PO (09:29)
[2018-07-28] MEDS: HYDROCODONE/APAP (5/325) TAB PO (09:32)
[2018-07-28] MEDS: NA PHOSPHATE/BIPHOS 133 ML ENEMA PR (11:56)
== END 2018-07-28 14:45 | disposition home or self-care (01) | DRG 765 ==
LOC: OBT 18:07 → L-D 18:09 → OBT 20:45 → L-D 20:45 → PP1 07-25 20:33
PROC: 10D00Z1 Extraction of Products of Conception, Low, Open Approach (ICD-10-PCS; principal; 2018-07-26)
DX: O60.14X2 Preterm labor third trimester with preterm delivery third trimester, fetus 2 (principal); O26.873 Cervical shortening, third trimester; O60.14X1 Preterm labor third trimester with preterm delivery third trimester, fetus 1; O30.043 Twin pregnancy, dichorionic/diamniotic, third trimester; Z37.2 Twins, both liveborn; Z3A.33 33 weeks gestation of pregnancy
CPT/HCPCS: 76815; 76817; 76818; 80053; 81003; 83735; 85025; 85610; 85730; 86592; 86850; 86900; 86901; 87340; 88307; 90715; 99464

== ENCOUNTER 2019-08-03 09:35 | Emergency (ER) | payer OTHER, MEDICAID ==
[2019-08-03] MEDS: LIDOCAINE/MYLANTA 40 ML BTL PO (10:20)
[2019-08-03] MEDS: ONDANSETRON (ODT) 4 MG TAB ODT (10:20)
[2019-08-03] MEDS: FAMOTIDINE 20 MG TAB PO (10:20)
== END 2019-08-03 11:20 | disposition home health service (06) ==
LOC: FTE 11:20
DX: K29.00 Acute gastritis without bleeding (principal)
CPT/HCPCS: 36415; 80053; 81001; 81025; 85025; 99283